=== PATIENT | female | born 1965 | race Caucasian/White ===

== ENCOUNTER → 2021-01-02 11:06 | Outpatient (CLI) | payer OTHER, SELFPAY ==
--- NOTE | ~2021-01-02 | XR_ITS ---
EXAMINATION: XR chest 2V DATE: 01/02/2021 12:09 INDICATION: Pleurodynia, painful palpable nodule of the right anterior lower chest wall TECHNIQUE: PA and lateral views of the chest are obtained. COMPARISON: None available FINDINGS: The lungs are free of acute opacities. There is no pleural effusion or pneumothorax. The ca rdiomediastinal silhouette is normal. There is mild thoracic spondylosis. No radiographic correlate i s identified in the area of the patient's right lower chest wall pain. IMPRESSION: 1. No acute cardiopulmonary abnormality. 2. No radiographic correlate for the patient's symptoms. Reviewed, dictated and finalized at location A.
== END ==
PROVIDERS: Visit Provider Surgery
DX: R07.81 Pleurodynia (principal)
CPT/HCPCS: 71046

== ENCOUNTER 2021-01-28 02:12 | Day surgery (SDC) | payer OTHER, SELFPAY ==
[2021-01-19 12:54] VITALS: BMI 15.4
[2021-01-28 11:11] VITALS: BP 102/71; PULSE 117; RESP 18; TEMP 36.8; O2SAT 99
[2021-01-28] MEDS: LACTATED RINGERS 1,000 ML 150 ML IV CONT (11:13)
--- NOTE | 2021-01-28 11:24 | PM.HPGS ---
History of Present Illness History of Present Illness Consent: Risks, benefits, and alternatives have been discussed and questions answered. Patient agrees to proceed with procedure. Chief complaint: abdominal pain, nausea, weightloss, diarrhea Narrative: Angela Sanchez is a 55 year old female who has been troubled by great deal of diarrhea including after every meal. She also has been losing weight, currently down to 90 lb. Review of Systems Review of Systems: All systems reviewed & are unremarkable except as noted in HPI and below PMFSH Past Medical History Medical History Abdominal pain History of blood transfusion Nausea Tobacco abuse Weight loss Surgical History Surgical History History of cholecystectomy History of hysterectomy Family History Family History Father Liver cancer Other Diabetes mellitus Thyroid disorder Bone cancer Mother , age 58 Uterine cancer Sibling Hypertension Social History Social History Smoking packs per day: 1 Smoking cigarettes per day: 20.0 Years smoked: 20 Smoking pack-years: 20.00 Smoking status: Current every day smoker Tobacco type: cigarettes Second hand tobacco smoke exposure: No Alcohol intake: never Substance use: never Substance use type: does not use Living arrangements: with family Gender identity (if verbalized by the patient): Female Spiritual care concerns: No Agree to blood products: Yes Meds Home Medications and Allergies Home Medications Medication Instructions Recorded Confirmed Type esterified estrogens 2.5 mg tablet 2.5 mg PO DAILY 12/31/20 01/19/21 History omeprazole 20 mg capsule,delayed 20 mg PO DAILY #30 cap 12/31/20 01/19/21 Rx release testosterone 50 mg/5 gram (1 %) 50 mg TRANSDERMAL DAILY 12/31/20 01/19/21 History transdermal gel estradiol [Yuvafem] 10 mcg VAGINAL 3XW 01/19/21 01/19/21 History Allergies Allergy/AdvReac Type Severity Reaction Status Date / Time ciprofloxacin [From Cipro] Allergy Mild Abdominal Verified 01/28/21 11:09 Pain duloxetine Allergy Mild Abdominal Verified 01/28/21 11:09 Pain metronidazole Allergy Mild Dizziness Verified 01/28/21 11:09 phenazopyridine Allergy Mild Hives Verified 01/28/21 11:09 [From Pyridium] clindamycin AdvReac Severe Abdominal Verified 01/28/21 11:09 Pain codeine AdvReac Severe Headache Verified 01/28/21 11:09 lidocaine AdvReac Severe Hives Verified 01/28/21 11:09 methylprednisolone AdvReac Severe Hives Verified 01/28/21 11:09 [From Depo-Medrol] sulfamethoxazole AdvReac Severe Hives Verified 01/28/21 11:09 baclofen AdvReac Mild Abdominal Verified 01/28/21 11:09 Pain Penicillins AdvReac Mild Gastrointestinal Verified 01/28/21 11:09 Upset acetaminophen [From Vicodin] AdvReac Dizziness Verified 01/28/21 11:09 hydrocodone [From Vicodin] AdvReac Dizziness Verified 01/28/21 11:09 Vital Signs Vital Signs - 24 hr 01/28/21 11:11 Temperature 36.8 C Pulse Rate 117 H Respiratory Rate 18 Blood Pressure 102/71 Pulse Oximetry 99 Exam Resp: Auscultation: clear to auscultation bilaterally Cardio: Rate: regular rate Rhythm: regular rhythm GI: GI Palp: Yes Soft to palpation and No Tenderness to palpation present (GI) Assessment and Plan Assessment and plan (1) Weight loss: Code(s): R63.4 - Abnormal weight loss Status: Acute Assessment and Plan: EGD with possible biopsy or dilatation or cautery. (2) Chronic diarrhea: Code(s): K52.9 - Noninfective gastroenteritis and colitis, unspecified Status: Acute Assessment and Plan: Colonoscopy with possible biopsy or polypectomy or cautery or injection of substances.
--- NOTE | 2021-01-28 11:49 | WPDANESEPPF ---
Anes - Initial Pre Proc Eval Procedure: Operation Date: 01/28/21 12:30 Proposed Procedures p Esophagogastroduodenoscopy & Colonoscopy - Valentin Martinez MD Date/Time: 01/28/21 11:49 Surgeon: Valentin Martinez MD Pre Op Diagnosis: abdominal pain, nausea, weightloss, diarrhea Patient Data Age: 55 Gender: F Height: 1.65 m Weight: 41.1 kg Last Vital Signs Temp 98.3 F 01/28/21 11:11 Pulse 117 H 01/28/21 11:11 Resp 18 01/28/21 11:11 BP 102/71 01/28/21 11:11 Pulse Ox 99 01/28/21 11:11 Allergies Allergy/AdvReac Type Severity Reaction Status Date / Time ciprofloxacin [From Cipro] Allergy Mild Abdominal Verified 01/28/21 11:09 Pain duloxetine Allergy Mild Abdominal Verified 01/28/21 11:09 Pain metronidazole Allergy Mild Dizziness Verified 01/28/21 11:09 phenazopyridine Allergy Mild Hives Verified 01/28/21 11:09 [From Pyridium] clindamycin AdvReac Severe Abdominal Verified 01/28/21 11:09 Pain codeine AdvReac Severe Headache Verified 01/28/21 11:09 lidocaine AdvReac Severe Hives Verified 01/28/21 11:09 methylprednisolone AdvReac Severe Hives Verified 01/28/21 11:09 [From Depo-Medrol] sulfamethoxazole AdvReac Severe Hives Verified 01/28/21 11:09 baclofen AdvReac Mild Abdominal Verified 01/28/21 11:09 Pain Penicillins AdvReac Mild Gastrointestinal Verified 01/28/21 11:09 Upset acetaminophen [From Vicodin] AdvReac Dizziness Verified 01/28/21 11:09 hydrocodone [From Vicodin] AdvReac Dizziness Verified 01/28/21 11:09 Home Medications Medication Instructions Recorded Confirmed Type esterified estrogens 2.5 mg tablet 2.5 mg PO DAILY 12/31/20 01/19/21 History omeprazole 20 mg capsule,delayed 20 mg PO DAILY #30 cap 12/31/20 01/19/21 Rx release testosterone 50 mg/5 gram (1 %) 50 mg TRANSDERMAL DAILY 12/31/20 01/19/21 History transdermal gel estradiol [Yuvafem] 10 mcg VAGINAL 3XW 01/19/21 01/19/21 History Patient hx anesthesia problems: none Family hx anesthesia problems: none Results Review: All pre-operative results and documents have been reviewed as part of the pre-operative evaluation. [facility] Past Medical History Medical History Abdominal pain History of blood transfusion Nausea Tobacco abuse Weight loss Surgical History Surgical History History of cholecystectomy History of hysterectomy Family History Family History Father Liver cancer Other Diabetes mellitus Thyroid disorder Bone cancer Mother , age 58 Uterine cancer Sibling Hypertension Social History Social History Smoking packs per day: 1 Smoking cigarettes per day: 20.0 Years smoked: 20 Smoking pack-years: 20.00 Smoking status: Current every day smoker Tobacco type: cigarettes Second hand tobacco smoke exposure: No Alcohol intake: never Substance use: never Substance use type: does not use Living arrangements: with family Gender identity (if verbalized by the patient): Female Spiritual care concerns: No Agree to blood products: Yes Anes - Eval Final PreProcedure Day of Procedure 01/28/21 11:49 Patient weight: thin Heart: regular rate and rhythm Lungs: clear to auscultation Airway: Mallampati scale class II Neurological: alert and oriented Last oral intake: >/= 8 hours Emergent: no Anesthetic plan: proceed Anesthesia type and monitoring: general GIVS and standard monitoring Results Review: All pre-operative results and documents have been reviewed as part of the pre-operative evaluation. Informed Consent: The patient's anesthetic plan and its attendant risks and benefits were discussed with the patient/family/POA. Questions were solicited and answers provided to the satisfaction of the patient/family/POA.
[2021-01-28] MEDS: ONDANSETRON INJ 4 MG/2 ML VIAL IV PUSH (11:50)
[2021-01-28 12:32] VITALS: BP 105/75; PULSE 91; RESP 19; O2SAT 99
[2021-01-28 12:42] VITALS: BP 108/81; PULSE 94; RESP 22; O2SAT 99
[2021-01-28 12:52] VITALS: BP 121/88; PULSE 75; RESP 19; O2SAT 99
== END 2021-01-28 13:00 | disposition home or self-care (01) ==
PROVIDERS: Visit Provider Internal Medicine Gastroenterology
PROC: 0DJ08ZZ Inspection of Upper Intestinal Tract, Via Natural or Artificial Opening Endoscopic (ICD-10-PCS; CPT 43235; principal; 2021-01-28 12:30)
DX: R63.4 Abnormal weight loss (principal); K29.70 Gastritis, unspecified, without bleeding; R19.7 Diarrhea, unspecified; K57.30 Diverticulosis of large intestine without perforation or abscess without bleeding; K63.89 Other specified diseases of intestine; F17.210 Nicotine dependence, cigarettes, uncomplicated
CPT/HCPCS: 43239; 45380; 87081; 88305; J2405; J2704; J7120

== ENCOUNTER 2021-03-17 14:47 | Outpatient (CLI) | payer OTHER, SELFPAY ==
[2021-03-17 15:07] LABS: Hematocrit 46.5 % (37.0-47.0); Mean Corpuscular HGB Conc 34.4 g/dl (32-36); Mean Corpuscular Hemoglobin 31.6 pg (26-34); Mean Corpuscular Volume 91.7 fl (80-100); Mean Platelet Volume 8.3 fl (7.4-10.4); Platelet Count Result 329 k/mm3 (150-375); Red Blood Count 5.07 M/mm3 (4.2-5.4); White Blood Count 7.9 K/mm3 (4.5-10.0)
[2021-03-17 15:26] LABS: Alanine Aminotransferase 15 U/L (4-35); Albumin Level 4.5 g/dL (3.5-5.1); Alkaline Phosphatase 53 U/L (38-126); Anion Gap 6 mmol/L (8-16); Aspartate Amino Transferase 23 U/L (14-36); Bilirubin,Total 0.3 mg/dL (0.2-1.3); Blood Urea Nitrogen 9 mg/dL (7-17); CRP < 0.5 mg/dL (<1.0); Calcium 9.3 mg/dL (8.4-10.2); Carbon Dioxide 29 mmol/L (22-30); Chloride 100 mmol/L (98-107); Estimated Glomerular Filt Rate > 60; Glucose 79 mg/dL (65-110); Lipase 65 U/L (23-300); Potassium 3.5 mmol/L (3.4-5.0); Sodium 135 mmol/L (137-145)
[2021-03-17 15:40] LABS: Erythrocyte Sedimentation Rate 3 mm/hr (0-20)
== END 2021-03-17 14:48 | disposition home or self-care (01) ==
LOC: ANHLAB 14:49
PROVIDERS: Visit Provider Nurse Practitioner Family
DX: K52.9 Noninfective gastroenteritis and colitis, unspecified (principal); R10.9 Unspecified abdominal pain; R63.4 Abnormal weight loss
CPT/HCPCS: 36415; 80053; 83690; 84443; 85027; 85652; 86140